=== PATIENT | female | born 1975 | race Caucasian/White ===

== ENCOUNTER 2022-01-31 15:14 | Outpatient (CLI) | payer BC | END 2022-01-31 15:15 | disposition home or self-care (01) | LOC: CT 15:14 | PROVIDERS: ATTEND Family Medicine | DX: R51.9 Headache, unspecified (principal) | CPT/HCPCS: 70450 ==

== ENCOUNTER 2022-11-13 07:38 | Outpatient (CLI) | payer BC | END 2022-11-13 07:39 | disposition home or self-care (01) | LOC: ULT 07:38 | PROVIDERS: ATTEND Family Medicine | DX: R10.11 Right upper quadrant pain (principal) | CPT/HCPCS: 76705 ==